=== PATIENT | female | born 1980 | race Caucasian/White ===

== ENCOUNTER 2023-01-24 21:01 | Emergency (ER) | payer OTHER, SELFPAY ==
--- NOTE | ~2023-01-24 | XR_ITS ---
EXAMINATION: XR chest 1V DATE: 01/24/2023 21:39 INDICATION: Altered mental status. TECHNIQUE: A single frontal view of the chest was obtained. COMPARISON: None. FINDINGS: There are airspace opacities in left lower lung zone. No pleural effusion or pneumothorax. The heart size is normal. IMPRESSION: 1. Airspace opacities in left lower lung zone, consistent with atelectasis versus pneumonia. Reviewed, dictated and finalized at location E. IMPRESSION: 1. Airspace opacities in left lower lung zone, consistent with atelectasis vers us pneumonia.
--- NOTE | ~2023-01-24 | CT_ITS ---
EXAMINATION: CT brain wo con DATE: 01/24/2023 21:31 INDICATION: Seizure. TECHNIQUE: Computed tomography (CT) of the head was performed without intravenous contrast. The mA wa s adjusted according to patient size. Iterative reconstruction technique was employed. The dose-lengt h product was 681.00 mGy-cm. COMPARISON: None FINDINGS: There is no intracranial hemorrhage, acute infarction, or abnormal intracranial mass lesion . The ventricles are normal in size. There is mild mucosal thickening in the paranasal sinuses. There are dystrophic calcifications of right ocular globe. The mastoid air cells are normal. IMPRESSION: 1. Normal brain. Reviewed, dictated and finalized at location E. IMPRESSION: 1. Normal brain.
[2023-01-24 21:07] VITALS: BP 116/85; PULSE 70; RESP 16; TEMP 36.1; O2SAT 99
[2023-01-24 21:12] LABS: Glucose Point of Care 77 mg/dl (65-105)
--- NOTE | 2023-01-24 21:28 | ED.GENADULT ---
HPI - General Adult General Chief complaint: Altered Mental Status Stated complaint: ETOH Time Seen by Provider: 01/24/23 21:12 History of Present Illness HPI narrative: This is a 42-year-old female presenting to the ED after being found down in her car apartment complex. At this time she is following commands but unable to answer questions. Per the patient's he believes that she got off work at 5 and has been drinking all day. She has a history of Heavy alcohol use. Patient and family deny any history of seizures. Patient does not have any tongue biting. No loss of continence. Patient cannot provide any meaningful information to the interview. Related Data Allergies Allergy/AdvReac Type Severity Reaction Status Date / Time No Known Allergies Allergy Verified 01/24/23 22:10 Exam Narrative: APPEARANCE: Patient appears confused, she is following commands but is nonverbal Head: atraumatic. EYES: EOMI, pupils are kelsie NOSE: Atraumatic NECK: Trachea midline RESPIRATORY: No increased rate of breathing, clear to auscultation CARDIOVASCULAR: RRR, no peripheral edema ABDOMINAL: Non-distended soft nontender no guarding or rebound MUSCULOSKELETAl: No obvious deformities NEURO: Alert. unable to do a thorough neurologic exam but she is moving for 4 extremities and no obvious cranial nerve deficits. SKIN:: Warm, dry. Normal color PSYCHIATRIC: Lethargic Course Vital Signs Vital signs: Vital Signs Temperature 97.0 F L 01/24/23 21:07 Pulse Rate 70 01/24/23 21:07 Respiratory Rate 16 01/24/23 21:07 Blood Pressure 116/85 01/24/23 21:07 Pulse Oximetry 99 01/24/23 21:07 Oxygen Delivery Room Air 01/24/23 21:07 Temperature 97.0 F L 01/24/23 21:07 Pulse Rate 79 01/24/23 22:30 Respiratory Rate 16 01/24/23 22:30 Blood Pressure 116/85 01/24/23 21:07 Pulse Oximetry 100 01/25/23 05:06 Oxygen Delivery Room Air 01/24/23 21:07 Medical Decision Making MDM Narrative Medical decision making narrative: -Presentation: 42-year-old female presenting ED after being found down at her apartment complex. -DDX includes but is not limited to: ETOH, seizure disorder, substance use disorder -Co-morbidities complicating care: history of heavy alcohol use -Social determinants of health: lives with her -External Chart Review: none -Hx from independent Sources: EMS -Discussion of Management/Consultants: none -Independent interpretation of studies: Alcohol level was 576. CBC and BMP within normal limits. Slight elevations in liver enzymes. Urine was negative. Drug screen is negative. Chest x-ray showed some atelectasis in the left lower lobe. Patient is not having any respiratory distress or hypoxia. CT head showed normal brain. Patient woke up around 230 was able ambulate to the bathroom and only conversation without difficulty. Patient's alcohol level is still very high. She will be monitored in the ER until 6:00 a.m. and then discharged to her 's care. Dx tests considered but not ordered: none -Procedures: None -Interventions: 2 L normal saline -Shared decision making / Disposition: patient was monitored until clinically sober. She will be discharged into her 's custody. They will be given resources for alcohol use disorder. -RX Vital Signs Vital Signs: Vital Signs Temperature 97.0 F L 01/24/23 21:07 Pulse Rate 70 01/24/23 21:07 Respiratory Rate 16 01/24/23 21:07 Blood Pressure 116/85 01/24/23 21:07 Pulse Oximetry 99 01/24/23 21:07 Oxygen Delivery Room Air 01/24/23 21:07 Temperature 97.0 F L 01/24/23 21:07 Pulse Rate 79 01/24/23 22:30 Respiratory Rate 16 01/24/23 22:30 Blood Pressure 116/85 01/24/23 21:07 Pulse Oximetry 100 01/25/23 05:06 Oxygen Delivery Room Air 01/24/23 21:07 Lab Data 01/24/23 21:21 01/24/23 21:21 Labs: Lab Results 01/14
[2023-01-24 21:34] LABS: Basophils Absolute Auto 0.2 K/mm3 (0.0-0.1); Basophils Percent Auto 1.6 % (0.2-1.2); Eosinophils Absolute Auto 0.3 K/mm3 (0-0.3); Hemoglobin 12.4 g/dL (12.0-15.0); Immature Granulocyte Absolute 0.02 K/mm3 (0.00-0.031); Immature Granulocyte Percent A 0.2 % (0-0.5); Lymphocytes Absolute Auto 3.29 K/mm3 (0.9-3.2); Lymphocytes Percent Auto 34.6 % (18.3-44.2); Mean Corpuscular HGB Conc 34.4 g/dl (32-36); Mean Corpuscular Hemoglobin 34.7 pg (26-34); Mean Corpuscular Volume 100.8 fl (80-100); Mean Platelet Volume 9.5 fl (7.4-10.4); Monocytes Absolute Auto 0.8 K/mm3 (0.1-0.6); Monocytes Percent Auto 8.2 % (2.6-8.5); Neutrophils Percent Auto 52.4 % (45.5-73.1); Platelet Count Result 369 k/mm3 (150-375); Red Blood Count 3.57 M/mm3 (4.2-5.4); Red Cell Distribution Width 11.8 % (11.5-14.5); White Blood Count 9.5 K/mm3 (4.5-10.0)
[2023-01-24 21:44] LABS: Lactic Acid Reflex 1.9 mmol/L (0.7-2.0)
[2023-01-24 21:45] LABS: INR 1.2; Partial Thromboplastin Time 30.9 SECONDS (22.3-36.8); Prothrombin Time 15.6 Seconds (11.1-14.7)
[2023-01-24 21:48] LABS: Alanine Aminotransferase 62 U/L (6-35); Albumin Level 4.4 g/dL (3.5-5.1); Alkaline Phosphatase 129 U/L (38-126); Anion Gap 11 mmol/L (8-16); Aspartate Amino Transferase 132 U/L (14-36); Bilirubin,Total 0.5 mg/dL (0.2-1.3); Blood Urea Nitrogen 6 mg/dL (7-17); Calcium 8.6 mg/dL (8.4-10.2); Carbon Dioxide 30 mmol/L (22-30); Chloride 99 mmol/L (98-107); Creatine Kinase 67 U/L (30-135); Estimated CRCL calculation 107 ml/min; Estimated Glomerular Filt Rate > 60; Glucose 90 mg/dL (65-110); Lipase 449 U/L (23-300); Magnesium 1.8 mg/dL (1.6-2.3); Potassium 3.6 mmol/L (3.4-5.0); Sodium 140 mmol/L (137-145)
[2023-01-24] MEDS: SODIUM CHLORIDE 0.9% IV 2,000 ML 999 ML IV CONT (21:56)
[2023-01-24 22:01] LABS: Ethanol 564 mg/dL (<10)
[2023-01-24 22:05] LABS: Appearance Urine Clear (Clear); Bilirubin Urine Negative (Negative); Blood Urine Negative (Negative); Color Urine Yellow (Yellow); Glucose Urine UA Negative (Negative); Ketones Urine Negative (Negative); Leukocyte Esterase Ur Negative LEU/UL (Negative); Nitrate Urine Negative (Negative); Protein Urine Negative (Negative); Specific Grav Ur 1.004 (1.001-1.035); Urobilinogen Urine 0.2 mg/dL (<2.0); pH Urine 7.5 (5.0-9.0)
[2023-01-24 22:08] LABS: Add Urine Microscopic? NO
--- NOTE | 2023-01-24 22:14 | PC.NURSE ---
patient resting but not answering questions appropriately, patient bedside, tearful, reports that patient resistant to getting help for alcohol problem
[2023-01-24 22:22] VITALS: PULSE 81
[2023-01-24 22:22] LABS: Barbiturate Screen Urine Negative (Negative); Benzodiazepines Screen Urine Negative (Negative)
[2023-01-24 22:30] VITALS: PULSE 79; RESP 16
[2023-01-24 22:52] LABS: Amphetamine Screen Urine Negative (Negative); Cocaine Screen Urine Negative (Negative); Methadone Screen Urine Negative (Negative); Opiate Screen Urine Negative (Negative); Phencyclidine Screen Urine Negative (Negative)
[2023-01-24 22:58] LABS: Cannabinoid Screen Urine Negative (Negative)
[2023-01-24 23:18] LABS: Free T4 Free Thyroxine Reflex 4.22 ng/dL (0.78-2.19)
[2023-01-24 23:43] VITALS: O2SAT 97
[2023-01-24 23:45] VITALS: O2SAT 97
[2023-01-25] VITALS (7 sets, daily range): BP systolic 106; BP diastolic 76; PULSE 76; RESP 18; O2SAT 95–100
--- NOTE | 2023-01-25 02:05 | PC.NURSE ---
patient pulled out iv, got up and went bathroom, steady gait, provider notified
--- NOTE | 2023-01-25 05:09 | PC.NURSE ---
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
== END 2023-01-25 05:55 | disposition home or self-care (01) ==
PROVIDERS: Emergency Provider Emergency Medicine
DX: F10.129 Alcohol abuse with intoxication, unspecified (principal); Y90.8 Blood alcohol level of 240 mg/100 ml or more
CPT/HCPCS: 36415; 70450; 71045; 80053; 80307; 81003; 81025; 82550; 82948; 83605; 83690; 83735; 84439; 84443; 85025; 85610; 85730; 96360; 96361; 99284; J7030

== ENCOUNTER 2023-12-23 08:48 | Inpatient (IN) | payer OTHER, SELFPAY ==
[2023-12-23] VITALS (13 sets, daily range): BP systolic 105–131; BP diastolic 68–92; PULSE 74–104; RESP 16–18; TEMP 36.7–37.1; O2SAT 95–100; BMI 20.7
--- NOTE | ~2023-12-23 | MR_ITS ---
EXAMINATION: MR brain/brain stem wo/w con DATE: 12/24/2023 14:04 INDICATION: Seizure. TECHNIQUE: Magnetic resonance imaging (MRI) of the brain and brainstem was performed without and with 12 mL MultiHance intravenous contrast. COMPARISON: Head CT 12/23/2023 FINDINGS: There are a few scattered foci of increased T2-weighted signal intensity in the cerebral wh ite matter. There is no intracranial hemorrhage or acute ischemic infarct. The ventricles are normal in size. There is mild mucosal thickening in the ethmoid sinuses. The orbits are normal. The mastoid air cells are normal. IMPRESSION: 1. Mild nonspecific cerebral white matter disease. The differential diagnosis includes premature [employer] chaparrita small vessel ischemic disease (especially if the patient has cardiovascular risk factors), demyel inating disease such as multiple sclerosis, drug abuse, vasculitis, or reactive astrocytosis (gliosis ) secondary to nonspecific etiology. Reviewed, dictated and finalized at location A. IMPRESSION: 1. Mild nonspecific cerebral white matter disease. The differential diagnosis i ncludes premature chronic small vessel ischemic disease (especially if the adela ent has cardiovascular risk factors), demyelinating disease such as multiple sc lerosis, drug abuse, vasculitis, or reactive astrocytosis (gliosis) secondary t o nonspecific etiology.
--- NOTE | ~2023-12-23 | CT_ITS ---
EXAMINATION: CT abdomen pelvis w con DATE: 12/23/2023 10:51 INDICATION: Upper abdominal pain. TECHNIQUE: Computed tomography (CT) of the abdomen and pelvis was performed with 100 mL Omnipaque 350 intravenous contrast. Automated exposure control and iterative reconstruction technique were employe d. The dose-length product was 334.19 mGy-cm. COMPARISON: None. FINDINGS: The visualized portions of the lung bases demonstrate minimal atelectasis. No pleural effus ion. The heart size is normal. No pericardial effusion. There is diffuse hepatic steatosis. The gallb ladder, spleen, pancreas, adrenal glands, and kidneys are normal. There is a 3.3 cm cyst in left ovar y. There are no dilated loops of bowel. The appendix is normal. There are no pathologically enlarged lymph nodes. There is no free intraperitoneal fluid. There is mild lumbar spondylosis. IMPRESSION: 1. Diffuse hepatic steatosis. 2. 3.3 cm left ovarian cyst, likely a follicular cyst. Reviewed, dictated and finalized at location A.
--- NOTE | ~2023-12-23 | CT_ITS ---
EXAMINATION: CT brain wo con DATE: 12/23/2023 10:51 INDICATION: Seizure. Altered mental status. TECHNIQUE: Computed tomography (CT) of the head was performed without intravenous contrast. The mA wa s adjusted according to patient size. Iterative reconstruction technique was employed. The dose-lengt h product was 681.00 mGy-cm. COMPARISON: None FINDINGS: There is no intracranial hemorrhage, acute infarction, or abnormal intracranial mass lesion . The ventricles are normal in size. The orbits are normal. The paranasal sinuses are clear. The mast oid air cells are normal. IMPRESSION: 1. Normal brain. Reviewed, dictated and finalized at location A. IMPRESSION: 1. Normal brain.
--- NOTE | ~2023-12-23 | XR_ITS ---
EXAMINATION: XR chest 2V DATE: 12/23/2023 10:36 INDICATION: Altered mental status. TECHNIQUE: Frontal and lateral views of the chest were obtained. COMPARISON: Chest single view 01/24/2023 FINDINGS: There is no pneumonia, pleural effusion, or pneumothorax. The heart size is normal. IMPRESSION: 1. No acute cardiopulmonary disease. Reviewed, dictated and finalized at location A.
--- NOTE | 2023-12-23 08:51 | ECG_ITS ---
Measurements Intervals [place] Rate: 80 P: 19 AL: 119 QRS: 57 QRSD: 98 T: 32 QT: 407 AVG RR: 742 QTc: 443 QTCB: 472 QTCF: 449 Interpretive Statements SINUS RHYTHM WITH SHORT AL INTERVAL NORMAL ECG SEE SCANNED COPY FOR SIGNATURE MTDD
--- NOTE | 2023-12-23 09:04 | ED.AMS ---
HPI - Altered Mental Status General Chief Complaint: Altered Mental Status <Pillo Brooks APRN - Last Filed: 12/23/23 13:30> Stated Complaint: AMS <Pillo Brooks APRN - Last Filed: 12/23/23 13:30> Time Seen by Provider: 12/23/23 08:58 <Pillo Brooks APRN - Last Filed: 12/23/23 13:30> Source: patient <Pillo Brooks APRN - Last Filed: 12/23/23 13:30> Mode of arrival: ambulatory <Pillo Brooks APRN - Last Filed: 12/23/23 13:30> Limitations: no limitations <Pillo Brooks APRN - Last Filed: 12/23/23 13:30> History of Present Illness HPI narrative: Cristina is a 43-year-old female patient presenting to the emergency room today via and words so EMS for altered level of consciousness. Patient is alert oriented x1. Family reports that patient does drink a lot of alcohol and takes gummies. Patient reports that she has not had any alcohol since last week. Patient was found down slow response foaming at the mouth at home prior to EMS arrival-suspected seizure. When asked if the patient had a seizure she denies and states she is here for abdomen pain. Feels as though it is weird that she left without her shoes and her purse this morning. She denies any urinary symptoms. Last bowel movement was yesterday. She denies any nausea, vomiting, diarrhea. She reports that there was a dull pain in the abdomen rating it 8/10 currently. <Pillo Brooks APRN - Last Filed: 12/23/23 13:30> Related Data Home Medications: Home Medications Medication Instructions Recorded Confirmed buspirone 15 mg tablet 15 mg PO BID 12/23/23 escitalopram oxalate 20 mg tablet 20 mg PO DAILY 12/23/23 levothyroxine 50 mcg tablet 50 mcg PO 0600 12/23/23 <Pillo Brooks APRN - Last Filed: 12/23/23 13:30> Allergies/Adverse Reactions: Allergies Allergy/AdvReac Type Severity Reaction Status Date / Time No Known Allergies Allergy Verified 01/24/23 22:10 <Pillo Brooks APRN - Last Filed: 12/23/23 13:30> Review of Systems Review of Systems: Pertinent positives per HPI. Patient denies any fever, chills, rash, headache, visual changes, dizziness, cough, runny nose, sore throat, shortness of breath, chest pain, palpitations, nausea, vomiting, diarrhea, constipation, or any urinary issues. <Pillo Brooks APRN - Last Filed: 12/23/23 13:30> [facility] Past Medical History Medical History: Medical History (Updated 12/23/23 @ 17:16 by Kath Castillo PA-C) Depression Eczema Hypothyroidism <Pillo Brooks APRN - Last Filed: 12/23/23 13:30> Family History Family History: Family History Other Unknown family medical history <Pillo Brooks APRN - Last Filed: 12/23/23 13:30> Social History Social History: Social History (Updated 12/23/23 @ 17:14 by Kath Castillo PA-C) Social History: Surrogate medical decision maker: Clarence Schmidt, spouse. Code status: Full code. Smoking packs per day: 0.5 Smoking cigarettes per day: 10.0 Years smoked: 10 Smoking pack-years: 5.00 Smoking status: Former smoker Alcohol intake: current Drinks per week: 5 Substance use: never Do You Feel Safe in your Home?: Yes Lack of Transportation: No Lack of Food: Never True Current Housing: I Have Housing Concerned About Future Housing: No Difficulty Paying Gas/Electric Bills: No Difficulty Paying for Meds: No Currently Unemployed: No Education: Master's Degree or Higher Difficulty w/ Childcare or Family Care: No Spiritual care concerns: Yes <Pillo Brooks APRN - Last Filed: 12/23/23 13:30> Comments At the time of my signature, I reviewed and agree with the nursing past medical, surgical, social, and family history. There is no relevant family history pertinent to the patient complaint. <Pillo Brooks APRN - Last Filed:
[2023-12-23 09:46] LABS: Basophils Absolute Auto 0.1 K/mm3 (0.0-0.1); Basophils Percent Auto 0.9 % (0.2-1.2); Eosinophils Percent Auto 0.4 % (0-4.4); Hematocrit 36.7 % (37.0-47.0); Hemoglobin 12.7 g/dL (12.0-15.0); Immature Granulocyte Absolute 0.04 K/mm3 (0.00-0.031); Immature Granulocyte Percent A 0.4 % (0-0.5); Lymphocytes Absolute Auto 0.62 K/mm3 (0.9-3.2); Lymphocytes Percent Auto 6.2 % (18.3-44.2); Mean Corpuscular HGB Conc 34.6 g/dl (32-36); Mean Corpuscular Hemoglobin 34.3 pg (26-34); Mean Corpuscular Volume 99.2 fl (80-100); Mean Platelet Volume 10.9 fl (7.4-10.4); Monocytes Percent Auto 9.7 % (2.6-8.5); Neutrophils Absolute Auto 8.3 K/mm3 (1.3-6.7); Neutrophils Percent Auto 82.4 % (45.5-73.1); Platelet Count Result 188 k/mm3 (150-375); Red Cell Distribution Width 12.1 % (11.5-14.5)
[2023-12-23 09:56] LABS: Alanine Aminotransferase 93 U/L (6-35); Albumin Level 4.9 g/dL (3.5-5.1); Alkaline Phosphatase 218 U/L (38-126); Anion Gap 21 mmol/L (4-12); Aspartate Amino Transferase 287 U/L (14-36); Bilirubin,Total 2.4 mg/dL (0.2-1.3); Blood Urea Nitrogen 10 mg/dL (7-17); Calcium 9.5 mg/dL (8.4-10.2); Carbon Dioxide 14 mmol/L (22-30); Chloride 96 mmol/L (98-107); Creatine Kinase 57 U/L (30-135); Estimated CRCL calculation 69 ml/min; Estimated Glomerular Filt Rate > 60; Glucose 163 mg/dL (65-110); Lipase 371 U/L (23-300); Potassium 4.1 mmol/L (3.4-5.0); Sodium 131 mmol/L (137-145)
[2023-12-23 09:57] LABS: Ammonia 18 umol/L (9-30); Ethanol < 10 mg/dL (<10)
[2023-12-23] MEDS: SODIUM CHLORIDE 0.9% IV 1,000 ML 999 ML IV CONT ×2 (10:00→11:12)
[2023-12-23 10:03] LABS: INR 1.2; Prothrombin Time 15.6 Seconds (11.1-14.7)
[2023-12-23 10:04] LABS: Partial Thromboplastin Time 27.5 Seconds (22.3-36.8)
[2023-12-23 10:07] LABS: Appearance Urine Clear (Clear); Bacteria Urine None Seen /hpf; Bilirubin Urine Negative (Negative); Blood Urine 3+ (Negative); Color Urine Yellow (Yellow); Glucose Urine UA Negative (Negative); Ketones Urine 4+ mg/dL (Negative); Leukocyte Esterase Ur Negative LEU/UL (Negative); Nitrate Urine Negative (Negative); Non Pathogenic Casts 0-2; Protein Urine 1+ mg/dL (Negative); Specific Grav Ur 1.021 (1.001-1.035); Squamous Epithelial Cell Urine Occasional /hpf (Few); WBC Urine 0-5 /hpf (0-3); pH Urine 5.5 (5.0-9.0)
[2023-12-23 10:18] LABS: Add Urine Microscopic? YES
[2023-12-23 11:18] LABS: Amphetamine Screen Urine Negative (Negative); Barbiturate Screen Urine Negative (Negative); Benzodiazepines Screen Urine Negative (Negative); Cannabinoid Screen Urine Positive (Negative); Cocaine Screen Urine Negative (Negative); Methadone Screen Urine Negative (Negative); Opiate Screen Urine Negative (Negative); Phencyclidine Screen Urine Negative (Negative)
--- NOTE | 2023-12-23 13:53 | PM.IMHP ---
H&P: HPI History of Present Illness Date/Time: 12/23/23 15:15 Chief Complaint: Found unresponsive. Narrative: This is a very pleasant 43-year-old female with hypothyroidism, fatty liver, depression, and history of alcohol abuse who presented to the emergency department via EMS from home for evaluation after she was found unresponsive at her residence. She is able to provide some history however her provides additional information, with the patient's permission, as she cannot recall what really happened this morning. 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 She feels exhausted most days admits that she does not get good sleep. Other than that she was in her usual state of health when she went to bed last night. This morning her heard her scream out and he saw her tremoring with ?foam coming out of the mouth.? He was unable to get her to respond for a couple of minutes and when she came to she was confused. There was urine incontinence but no tongue bite. On EMS arrival she was still confused and presumed to be postictal. She has no history of seizures. Again, she does not sleep well. She has a history of alcohol abuse and has been off of vodka for 2 months however she does drink beer or wine most days of the week in excess. She did not have any alcohol at all over the weekend and did not really have much to eat either due to being busy and stressed. No recent change in medications. At the time my evaluation she complains of a mild, generalized headache. She has some fine tremors of her hands. She denies feelings of anxiety, hallucinations, nausea, vomiting, chest pain, shortness of breath, and sweats. In the ED: She was afebrile on arrival with stable vital signs. Labs were significant for a WBC count of 10.0, hemoglobin 12.7, platelets 188, INR 1.2, PT 15.6, sodium 131, potassium 4.1, chloride 96, carbon dioxide 14, anion gap 21, creatinine 0.80, total bilirubin 2.4, AST 287, ALT 93, alkaline phosphatase 218, ammonia 18, lipase 371. Urine was positive for 1+ protein, 4+ ketones, 3+ blood, and 11 to 20 RBC. Urine drug screen was positive for cannabinoids. Ethyl alcohol level was less than 10. Brain CT and chest x-ray were normal. CT of the abdomen pelvis showed diffuse hepatic steatosis and a 3.3 cm left ovarian cyst. Review of Systems Review of Systems: 12 systems were reviewed and are negative except for as per HPI. [facility] Past Medical History Medical History (Updated 12/23/23 @ 21:43 by Kath Castillo PA-C) Alcohol abuse Depression Eczema Hepatic steatosis Hypothyroidism Surgical History Surgical History (Updated 12/23/23 @ 21:38 by Kath Castillo PA-C) No history of previous surgery Family History Family History Other Unknown family medical history Social History Social History (Updated 12/23/23 @ 21:38 by Kath Castillo PA-C) Social History: Surrogate medical decision maker: Clarence Schmidt, spouse. Code status: Full code. Smoking packs per day: 0.5 Smoking cigarettes per day: 10.0 Years smoked: 10 Smoking pack-years: 5.00 Smoking status: Former smoker Alcohol intake: current Drinks per week: 5 Substance use: never Do You Feel Safe in your Home?: Yes Lack of Transportation: No Lack of Food: Never True Current Housing: I Have Housing Concerned About Future Housing: No Difficulty Paying Gas/Electric Bills: No Difficulty Paying for Meds: No Currently Unemployed: No Education: Master's Degree or Higher Difficulty w/ Childcare or Family Care: No Additional living arrangements comments: Lives with spouse in [place]. 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 Spiritual care concerns: Yes Meds Home Medications and Allergies Home Medications Medication Instructions Recorded Confirmed Type buspiron
[2023-12-23] MEDS: IBUPROFEN 600 MG TABLET PO (14:37)
--- NOTE | 2023-12-23 15:08 | ADMGEN ---
This patient, Cristina Fowler, was admitted to IMU Room 231-01. Patient/family oriented to hospital policies and general routines including ID bracelet, bed and alarms, visiting hours, pain management, procedures, bathroom and other care routines, personal items, smoking policy, room service/diet, and visiting hours. Information on how to activate the Rapid Response Team has been discussed. Patient/Family are encouraged to report perceived risks to care and to ask questions if they do not understand what they are told or what they should do.
[2023-12-23] MEDS: THIAMINE HCL 200 MG/2 ML VIAL 100 MG IV PUSH (17:39)
[2023-12-23] MEDS: DEXTROSE 5%/0.9% SOD CHL 1,000 ML 100 ML IV CONT (17:42)
[2023-12-23] MEDS: FOLIC ACID 1 MG/0.2 ML INJ IV PUSH (17:42)
[2023-12-23 17:53] LABS: Anion Gap 16 mmol/L (4-12); Blood Urea Nitrogen 6 mg/dL (7-17); Calcium 8.2 mg/dL (8.4-10.2); Carbon Dioxide 15 mmol/L (22-30); Chloride 99 mmol/L (98-107); Estimated CRCL calculation 99 ml/min; Estimated Glomerular Filt Rate > 60; Glucose 92 mg/dL (65-110); Magnesium 1.7 mg/dL (1.6-2.3); Potassium 3.8 mmol/L (3.4-5.0); Sodium 130 mmol/L (137-145)
[2023-12-23 17:56] LABS: Lactic Acid Reflex 1.2 mmol/L (0.7-2.0)
[2023-12-23 19:25] LABS: Hepatitis B Surface Antigen Negative (Negative)
[2023-12-23 19:31] LABS: HAV RESULT Negative (Negative); Hepatitis B Core IgM Result Negative (Negative)
[2023-12-23 19:41] LABS: Beta-Hydroxybutyrate/Acetoacetate 6.08 mmol/L (0.02-0.27)
[2023-12-23 19:43] LABS: Hepatitis C Virus Antibody Negative (Negative)
[2023-12-23] MEDS: IBUPROFEN 400 MG TABLET PO (21:00)
[2023-12-23] MEDS: chlordiazePOXIDE (*CRX) 10 MG CAPSULE PO (21:04)
[2023-12-23 23:46] LABS: Hemoglobin A1C 4.5 % (<5.7)
[2023-12-24] VITALS (17 sets, daily range): BP systolic 102–125; BP diastolic 68–90; PULSE 61–114; RESP 16–18; TEMP 36–37.3; O2SAT 98–100; BMI 21.4
[2023-12-24] MEDS: DEXTROSE 5%/0.9% SOD CHL 1,000 ML 100 ML IV CONT (03:42)
[2023-12-24 04:55] LABS: Alanine Aminotransferase 62 U/L (6-35); Albumin Level 3.8 g/dL (3.5-5.1); Alkaline Phosphatase 150 U/L (38-126); Anion Gap 11 mmol/L (4-12); Aspartate Amino Transferase 163 U/L (14-36); Bilirubin,Total 2.2 mg/dL (0.2-1.3); Blood Urea Nitrogen 4 mg/dL (7-17); Calcium 8.5 mg/dL (8.4-10.2); Carbon Dioxide 21 mmol/L (22-30); Chloride 102 mmol/L (98-107); Estimated CRCL calculation 116 ml/min; Estimated Glomerular Filt Rate > 60; Glucose 125 mg/dL (65-110); Lipase 626 U/L (23-300); Potassium 3.2 mmol/L (3.4-5.0); Sodium 134 mmol/L (137-145)
--- NOTE | 2023-12-24 08:49 | PM.IMPN ---
Progress Note: A&P Assessment and Plan (1) Seizure: Code(s): R56.9 - Unspecified convulsions Status: Acute (2) Alcohol withdrawal: Code(s): F10.939 - Alcohol use, unspecified with withdrawal, unspecified Status: Acute (3) Metabolic acidosis: Code(s): E87.20 - Acidosis, unspecified Status: Acute (4) Transaminitis: Code(s): R74.01 - Elevation of levels of liver transaminase levels Status: Acute (5) Hypothyroidism: Code(s): E03.9 - Hypothyroidism, unspecified Status: Acute (6) Hepatic steatosis: Code(s): K76.0 - Fatty (change of) liver, not elsewhere classified Status: Acute (7) Acute alcoholic hepatitis: Code(s): K70.10 - Alcoholic hepatitis without ascites Status: Acute Plan The patient presented to the emergency department for evaluation after she was found unresponsive, foaming at the mouth, and incontinent of urine as detailed in HPI. Labs, imaging, EKG, and all reports were personally reviewed. It sounds like she had a seizure which may very well be related to alcohol withdrawal. She has not had anything to drink since late last week. Her alcohol level today was undetectable. Metabolic acidosis is likely related to the seizure in addition to ketoacidosis from poor oral intake. Repeat BMP and check lactic acid level and beta hydroxybutyrate this evening. She has been started on IV fluids with dextrose for the ketoacidosis. Initiate CIWA protocol and seizure precautions. Brain MRI and EEG ordered for further evaluation. Transaminitis is likely related to alcohol abuse and there are findings of hepatic steatosis on imaging today of which she has been told of previously. Lipase is slightly elevated without signs of acute pancreatitis on CT and will be trended. Is important that she stops drinking and that was discussed. She is motivated and is participating in outpatient therapy and plans on starting AA. Vital signs were reviewed and they are stable. Her home medications will be reviewed and resumed as appropriate. Findings and treatment plan were discussed with the patient. Questions were solicited and answered to satisfaction. The patient's medical management will be taken over by the hospitalist team in a.m. /9: seizure patient denies history of seizure pending Brain MRI and EEG no sz over night unclear etiologies of seizures, alcohol level <10, alcohol drug screen positive for marijuana continue neuro check fall precaution Consult neurologist for evaluation continue rest management alcoholic hepatitis elevated liver enzymes, bilirubin Hypertension is pending negative of care infection CT shows 1. Diffuse hepatic steatosis. 2. 3.3 cm left ovarian cyst, likely a follicular cyst. liver enzymes are trending down Follow-up CMP tomorrow order abd us acute alcoholic pancreatitis Order that pain management Continue fluid resuscitation: D5 LR 100 mL/hour history of alcohol abuse no significant sign or symptom of alcohol withdrawal Continue thiamine, folic acid po evaluation and treatment per [facility] protocol Subjective Date/time seen: 12/24/23 08:49 Interval history: I saw and examined. patient denied visual hallucination, headache, focal weakness, chest pain, shortness of breath. Patient afebrile, blood pressure stable Exam Narrative: GENERAL: Pleasant, in no acute distress. Well-nourished. - EYES: EOMI. Anicteric. - HENT: Moist mucous membranes. - LUNGS: Clear to auscultation bilaterally, no wheezing, rhonchi, or rales. - CARDIOVASCULAR: Regular rate and rhythm. No murmur. No JVD. - ABDOMEN: Soft, non-tender and non-distended. No palpable masses. - EXTREMITIES: No edema. Peripheral pulses 2+. Non-tender. - NEUROLOGIC: No focal neurological deficits. CN II-XII grossly intact. - PSYCHIATRIC: Awake, Alert and oriented x 3. Appropriate mood and affect. - SKIN: No rashes or lesions. Warm. - LYM
[2023-12-24] MEDS: THIAMINE HCL 100 MG TABLET PO (09:12)
[2023-12-24] MEDS: FOLIC ACID 1 MG TABLET PO (09:12)
[2023-12-24 09:36] LABS: Hematocrit 33.8 % (37.0-47.0); Hemoglobin 11.5 g/dL (12.0-15.0); Mean Corpuscular Hemoglobin 34.1 pg (26-34); Mean Corpuscular Volume 100.3 fl (80-100); Mean Platelet Volume 11.6 fl (7.4-10.4); Platelet Count Result 150 k/mm3 (150-375); Red Blood Count 3.37 M/mm3 (4.2-5.4); Red Cell Distribution Width 12.4 % (11.5-14.5); White Blood Count 9.3 K/mm3 (4.5-10.0)
[2023-12-24] MEDS: DEXTROSE 5%/LACTATED RINGERS 1,000 ML 100 ML IV CONT (09:59)
--- NOTE | 2023-12-24 11:57 | WPDNEURCNPN ---
Assessment and Plan Assessment and plan (1) Alcohol abuse: Code(s): F10.10 - Alcohol abuse, uncomplicated Status: Acute (2) Seizure: Code(s): R56.9 - Unspecified convulsions Status: Acute Plan Considering the history and discussion with the she will benefit from the ongoing therapy with psychiatric and beneficial if he get a psychiatric consultation during this hospitalization because of the poor compliance as an outpatient her had a thorough discussion with me and he would like to pursue further because she is reaching the point he has no control on her cell. As far as this episode is concerned it could be seizure related to chronic alcoholism will obtain the EEG further recommendation. While here should follow the seizure precautions Consult date: 12/24/23 HPI: Cristina Fowler is a 43 year old femaleAdmitted to the hospital through the emergency room after being found down in her car though by the time she came to the emergency room she was following the commands still was unable to answer the questions her reported that she probably got off work at 5 and had been drinking whole day patient does have ongoing history of heavy alcohol consumption but the gave no history of seizures in the past in the emergency room it was documented that she was not incontinent but she was unable to provide any meaningful information . Totally she is not allergic to any medication, her vital signs were normal with blood pressure 116/85 temperature 97.0? CBC was normal CMP was normal drug screen was negative except the alcohol level of [address] scan of head was normal no bleed, abdomen and pelvic CT scan documented diffuse hepatic steatosis in addition 3.3cm left ovarian cyst. As per the discussion with her patient does have ongoing history of chronic recurrent depression in addition to chronic recurrent alcohol consumption and on a day-to-day basis she is unable to handle any stress most of the time she has exhausted does not get proper sleep and hoyos drinks a week currently on the day of admission her heard a scream she was tremoring and foaming and unable to carry on the conversation definitely confused she was incontinent and was still confused when the EMS arrived he does have ongoing history of chronic insomnia , she drinks heavy beer wine vodka, at present she carries a full code status history of years smoked 10 smoking pack years 5 but former smoker. Review of Systems Review of Systems: All systems reviewed & are unremarkable except as noted in HPI and below [facility] Past Medical History Medical History (Updated 12/24/23 @ 09:10 by Medina Michael MD) Alcohol abuse Depression Eczema Hepatic steatosis Hypothyroidism Surgical History Surgical History (Updated 12/23/23 @ 21:38 by Kath Castillo PA-C) No history of previous surgery Family History Family History Other Unknown family medical history Social History Social History (Updated 12/23/23 @ 21:38 by Kath Castillo PA-C) Social History: Surrogate medical decision maker: Clarence Schmidt, spouse. Code status: Full code. Smoking packs per day: 0.5 Smoking cigarettes per day: 10.0 Years smoked: 10 Smoking pack-years: 5.00 Smoking status: Former smoker Alcohol intake: current Drinks per week: 5 Substance use: never Do You Feel Safe in your Home?: Yes Lack of Transportation: No Lack of Food: Never True Current Housing: I Have Housing Concerned About Future Housing: No Difficulty Paying Gas/Electric Bills: No Difficulty Paying for Meds: No Currently Unemployed: No Education: Master's Degree or Higher Difficulty w/ Childcare or Family Care: No Additional living arrangements comments: Lives with spouse in [place]. 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 Spiritual care concerns: Yes
--- NOTE | 2023-12-24 14:18 | WPDNEUROLOGY ---
Neurology EEG Report General Information Date of Study: 12/24/23 TEST eeg DIAGNOSIS Suspected seizures CONDITION OF RECORDING Awake and drowsy with continuous eye movements noted throughout the tracing.y EEG NUMBER [id number] CLINICAL HISTORY patient reports she was at home sleeping when she thinks she had a seizure was told she was unresponsive and foaming at the mouth. There is history of seizures. EEG DESCRIPTION Whole record consist of low-voltage 15 to 21 hertz per 2nd beta activity with a poor anterior-posterior gradient and admixed with multiple movement artifacts. Hyperventilation not done. Photic stimulation not done. Non paroxysmal. Nonfocal. Nonlateralizing. IMPRESSION No significant abnormalities noted.
[2023-12-24] MEDS: chlordiazePOXIDE (*CRX) 25 MG CAPSULE 50 MG PO (20:45)
--- NOTE | 2023-12-24 21:57 | PC.NURSE ---
At 1915 pt. came out of room and stated that she did not want IV fluids going any more. the rn tried to explain to the pt. the importance of keeping the IV fluids continuing. Dr. Fontanez was called and stated that the IV fluids can be shut off due to pt. request and libruim of 50mg po was ordered.
--- NOTE | 2023-12-24 22:04 | PC.NURSE ---
At 2100 rn was called into the room due to the pt. very upset that the tele monitor is on her. rn explained to the pt. why the pt. is on telemetry. At 2136 [place] police department called the [facility] station stating that the pt. called the [place] police department stating she was being held prisoner. Dr. Fontanez was notified including the admission discharge rn and the housekeeping cleaner. The pt. signed out AMA at 2200 and was notified.
--- NOTE | 2024-01-10 06:18 | PM.EVENT ---
Event Note Event Note Event Note: Patient left AMA Admitting diagnosis: (1) Seizure: ?Code(s): R56.9 - Unspecified convulsions ?Status:?Acute (2) Alcohol withdrawal: ?Code(s): F10.939 - Alcohol use, unspecified with withdrawal, unspecified ?Status:?Acute (3) Metabolic acidosis: ?Code(s): E87.20 - Acidosis, unspecified ?Status:?Acute (4) Transaminitis: ?Code(s): R74.01 - Elevation of levels of liver transaminase levels ?Status:?Acute (5) Hypothyroidism: ?Code(s): E03.9 - Hypothyroidism, unspecified ?Status:?Acute (6) Hepatic steatosis: ?Code(s): K76.0 - Fatty (change of) liver, not elsewhere classified ?Status:?Acute I was called to be notified that patient decided to leave AMA. Earlier in the night patient was belligerent and refusing treatment. Patient with decision making capacity, not a threat to self or others
== END 2023-12-24 22:00 | disposition left against medical advice (07) | DRG 894 ==
LOC: ANHED 13:30 → ANHIMU 14:33
PROVIDERS: Hospitalist; Physician Assistant; Admitting Provider Student in an Organized Health Care Education/Training Program; Emergency Provider Nurse Practitioner Family; PCP Internal Medicine; Visit Provider Internal Medicine
DX: F10.139 Alcohol abuse with withdrawal, unspecified (principal); K85.20 Alcohol induced acute pancreatitis without necrosis or infection; G40.89 Other seizures; E87.21 Acute metabolic acidosis; E87.29 Other acidosis; E03.9 Hypothyroidism, unspecified; K76.0 Fatty (change of) liver, not elsewhere classified; K70.10 Alcoholic hepatitis without ascites; Y90.0 Blood alcohol level of less than 20 mg/100 ml
CPT/HCPCS: 36415; 70450; 70553; 71046; 74177; 80048; 80053; 80074; 80307; 81001; 82010; 82140; 82248; 82550; 83036; 83605; 83690; 83735; 84443; 85025; 85027; 85610; 85730; 93005; 95816; 96360; 96361; 99285; A9270; A9577; J3411; J7030; J7042; J7121; Q9967

== ENCOUNTER 2024-01-19 23:16 | Observation (INO) | payer OTHER, SELFPAY ==
--- NOTE | ~2024-01-19 | XR_ITS ---
Portable chest x-ray Comparison: 12/23/2023 Clinical History: Altered mental status Findings: Lungs are clear, without focal consolidation or pleural effusion. Cardiomediastinal silho uette is stable. Bones and soft tissues are unremarkable. Impression: Normal chest. Reviewed, dictated and finalized at location . Impression: Normal chest.
--- NOTE | ~2024-01-19 | CT_ITS ---
Non-contrast Head CT History: Head injury COMPARISON: 12/23/2023 Technique: Axial non-contrast imaging of the brain was performed. Dose reduction technique was used on this scan by utilizing automated exposure control and iterative reconstruction technique. The dose -length product (DLP) was 681.00 mGy-cm. Findings: There is no evidence of intracranial hemorrhage, mass lesion, or acute infarct. Brain par enchyma appears normal. The ventricles and subarachnoid spaces are normal in size. The calvarium ap pears normal. The visualized paranasal sinuses and mastoid air cells are clear. Impression: No significant abnormality seen. Reviewed, dictated and finalized at location . Impression: No significant abnormality seen.
--- NOTE | ~2024-01-19 | CT_ITS ---
Noncontrast CT scan of the cervical spine Technique: Multiple contiguous axial [address] images of the cervical spine were obtained and rec onstructed in 2D sagittal and coronal planes on the acquisition scanner. Dose reduction technique was used on this scan by utilizing automated exposure control, adjustment of the mA and/or kV according to patient size. The dose-length product (DLP) was 253.76 mGy-cm. Clinical History: Pain Findings: No fractures or dislocations. Scattered facet joint degenerative changes are present, mild to moderate in degree.. The intervertebral disc spaces are preserved. No prevertebral soft tissue s welling. Impression: No fracture or subluxation of the cervical spine. Reviewed, dictated and finalized at location M. Impression: No fracture or subluxation of the cervical spine.
[2024-01-19 23:21] VITALS: BP 103/76; PULSE 63; RESP 14; TEMP 36.3; O2SAT 97
--- NOTE | 2024-01-19 23:58 | ED.FALL ---
HPI - Fall General Chief Complaint: Fall Stated Complaint: fall, ams Time Seen by Provider: 01/19/24 23:34 Source: patient Mode of arrival: EMS Limitations: altered mental status History of Present Illness HPI Narrative: This is a 43-year-old female with PMH of alcohol abuse, alcoholic hepatitis, alcohol withdrawal seizures who presents to the ED via EMS with chief complaint of head injury and altered mental status. The downstairs neighbor called the EMS after they heard her fall. The was with her but is not currently at bedside. EMS reports that she was found with a bottle of liquor Patient is severely altered and unable to provide any history. Related Data Home Medications Medication Instructions Recorded Confirmed buspirone 15 mg tablet 5 mg PO BID 12/23/23 12/24/23 escitalopram oxalate 20 mg tablet 10 mg PO DAILY 12/23/23 12/24/23 levothyroxine 50 mcg tablet 50 mcg PO 0600 12/23/23 12/24/23 Allergies Allergy/AdvReac Type Severity Reaction Status Date / Time No Known Allergies Allergy Verified 01/24/23 22:10 Review of Systems Review of Systems: ROS unobtainable: Yes unobtainable due to mental status [facility] Past Medical History Medical History (Updated 01/20/24 @ 03:41 by Cody Lake PA-C) Alcohol abuse Depression Eczema Hepatic steatosis Hypothyroidism Surgical History Surgical History (Updated 12/23/23 @ 21:38 by Kath Castillo PA-C) No history of previous surgery Family History Family History Other Unknown family medical history Social History Social History (Updated 12/23/23 @ 21:38 by Kath Castillo PA-C) Social History: Surrogate medical decision maker: Clarence Tracikarishma, spouse. Code status: Full code. Smoking packs per day: 0.5 Smoking cigarettes per day: 10.0 Years smoked: 10 Smoking pack-years: 5.00 Smoking status: Former smoker Alcohol intake: current Drinks per week: 5 Substance use: never Do You Feel Safe in your Home?: Yes Lack of Transportation: No Lack of Food: Never True Current Housing: I Have Housing Concerned About Future Housing: No Difficulty Paying Gas/Electric Bills: No Difficulty Paying for Meds: No Currently Unemployed: No Education: Master's Degree or Higher Difficulty w/ Childcare or Family Care: No Additional living arrangements comments: Lives with spouse in [place]. 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 Spiritual care concerns: No Exam Narrative: GENERAL: Obtunded HEAD: Normocephalic, atraumatic. EYES: PERRLA and EOMI. ENT: Small right-sided periorbital hematoma Nares clear, no rhinorrhea or epistaxis. Mucous membranes moist. Oropharynx without tonsillar hypertrophy exudate or other lesions. NECK: Supple. No adenopathy or masses. CHEST: No respiratory distress. Clear to auscultation. No wheezes rales or rhonchi HEART: Regular rate and rhythm. No murmur heard. Normal peripheral pulses. ABDOMEN: Soft, nontender, nondistended, normal active bowel sounds. MSK: Normal range of motion. No edema. SKIN: Warm, dry, no rash. NEURO: GCS 7. Responding only to painful stimuli. PSYCH: obtunded Course Reevaluation(s) Reevaluation #1: Patient now has spontaneous eye movements; GCS has improved to 9. is now bedside. He states that she deals with alcoholism. States she will hide bottles and often try to sneak in drinks. She was admitted to the hospital somewhat recently for alcohol withdrawal seizures. He does state that she drank vodka tonight. He heard her fall but did not witness the fall. He reports that she probably fell into the shower door or hit her head on the floor causing the right eye swelling. reports that she was actually doing her Mag citrate for bowel prep for colonoscopy and drinking. So she has not been eating which probably made things worse. He does not think that she wou
[2024-01-20] VITALS (11 sets, daily range): BP systolic 95–110; BP diastolic 55–78; PULSE 70–81; RESP 14–18; TEMP 36.3–37.1; O2SAT 96–100; BMI 20.7
--- NOTE | 2024-01-20 00:02 | ECG_ITS ---
SEE SCANNED COPY FOR CONFIRMED REPORT MTDD
[2024-01-20 00:24] LABS: Basophils Absolute Auto 0.1 K/mm3 (0.0-0.1); Basophils Percent Auto 1.1 % (0.2-1.2); Eosinophils Absolute Auto 0.3 K/mm3 (0-0.3); Eosinophils Percent Auto 3.7 % (0-4.4); Hematocrit 35.2 % (37.0-47.0); Immature Granulocyte Absolute 0.03 K/mm3 (0.00-0.031); Immature Granulocyte Percent A 0.4 % (0-0.5); Lymphocytes Absolute Auto 2.72 K/mm3 (0.9-3.2); Lymphocytes Percent Auto 37.6 % (18.3-44.2); Mean Corpuscular HGB Conc 34.1 g/dl (32-36); Mean Corpuscular Hemoglobin 34.8 pg (26-34); Mean Platelet Volume 9.8 fl (7.4-10.4); Monocytes Absolute Auto 1.1 K/mm3 (0.1-0.6); Monocytes Percent Auto 15.1 % (2.6-8.5); Neutrophils Percent Auto 42.1 % (45.5-73.1); Platelet Count Result 202 k/mm3 (150-375); Red Blood Count 3.45 M/mm3 (4.2-5.4); Red Cell Distribution Width 12.7 % (11.5-14.5); White Blood Count 7.2 K/mm3 (4.5-10.0)
[2024-01-20 00:35] LABS: INR 1.3; Prothrombin Time 16.5 Seconds (11.1-14.7)
[2024-01-20 00:36] LABS: Partial Thromboplastin Time 30.9 Seconds (22.3-36.8)
[2024-01-20 00:37] LABS: Lactic Acid Reflex 2.5 mmol/L (0.7-2.0)
[2024-01-20 00:46] LABS: Alveolar/Arterial O2 Gradient 13.3 mmHg; Base Excess ABG -3.3 mEq/l (+/-2.0); Device ROOM AIR; Fractional Inspired Oxygen 21 %; HCO3 ABG 21.8 mEq/l (22.0-26.0); Modified Allen's Test Pass; Oxygen Content ABG 16.9 %vol (16.0-22.0); Oxygen Saturation ABG 96.6 % (95.0-100.0); Oxyhemoglobin 93.3 % THb (90.0-100.0); PCO2 ABG 39.2 mmHg (35.0-45.0); PO2 ABG 89.5 mmHg (80.0-100.0); PO2 FiO2 Ratio Arterial Blood 4.26 %; Site Drawn RIGHT RADIAL; Total Hemoglobin 12.8 g/dL (12.0-18.0); pH ABG 7.363 (7.350-7.450)
[2024-01-20 00:47] LABS: Appearance Urine Clear (Clear); Bilirubin Urine Negative (Negative); Blood Urine Negative (Negative); Color Urine Yellow (Yellow); Glucose Urine UA Negative (Negative); Ketones Urine Negative (Negative); Leukocyte Esterase Ur Negative LEU/UL (Negative); Nitrate Urine Negative (Negative); Protein Urine Negative (Negative); Urobilinogen Urine 0.2 mg/dL (<2.0)
[2024-01-20 00:48] LABS: Troponin I < 0.012 ng/mL (0.000-0.034)
[2024-01-20] MEDS: SODIUM CHLORIDE 0.9% IV 1,000 ML 999 ML IV CONT ×2 (00:53)
[2024-01-20 00:55] LABS: Alanine Aminotransferase 165 U/L (6-35); Alkaline Phosphatase 150 U/L (38-126); Anion Gap 9 mmol/L (4-12); Aspartate Amino Transferase 463 U/L (14-36); Bilirubin,Total 0.6 mg/dL (0.2-1.3); Calcium 7.9 mg/dL (8.4-10.2); Carbon Dioxide 27 mmol/L (22-30); Chloride 109 mmol/L (98-107); Creatine Kinase 76 U/L (30-135); Estimated Glomerular Filt Rate > 60; Glucose 93 mg/dL (65-110); Potassium 3.1 mmol/L (3.4-5.0); Sodium 145 mmol/L (137-145)
[2024-01-20 00:57] LABS: Add Urine Microscopic? NO; Ammonia < 9 umol/L (9-30); Specific Grav Ur 1.004 (1.001-1.035)
[2024-01-20] MEDS: THIAMINE 500 MG/NS 100 ML 500 MG/100 ML BAG 200 MG IVPB (01:41)
[2024-01-20] MEDS: KCL 20 MEQ/SW 100 ML 100 ML 50 MEQ IVPB (01:45)
[2024-01-20 01:59] LABS: Blood Urea Nitrogen < 2 mg/dL (7-17)
[2024-01-20] MEDS: DEXTROSE 5%/LACTATED RINGERS 1,000 ML 1000 ML IV CONT (02:17)
[2024-01-20] MEDS: THIAMINE HCL 200 MG/2 ML VIAL 100 MG IV PUSH (02:18)
[2024-01-20 02:39] LABS: Acetaminophen < 10 ug/mL (10-30)
[2024-01-20 02:44] LABS: Ethanol 591 mg/dL (<10)
[2024-01-20 02:50] LABS: Amphetamine Screen Urine Negative (Negative); Barbiturate Screen Urine Negative (Negative); Benzodiazepines Screen Urine Negative (Negative); Cannabinoid Screen Urine Positive (Negative); Cocaine Screen Urine Negative (Negative); Methadone Screen Urine Negative (Negative); Opiate Screen Urine Negative (Negative); Phencyclidine Screen Urine Negative (Negative)
[2024-01-20 03:21] LABS: Reflex Lactic Acid Yes or No Add Lactic
--- NOTE | 2024-01-20 04:21 | PM.IMHP ---
H&P: HPI History of Present Illness Date/Time: 01/20/24 04:21 Chief Complaint: Syncope Narrative: 43-year-old female with a past medical history of hypothyroidism, anxiety and chronic alcohol abuse with history of alcohol withdrawal seizure December 2023 who presented to the ER from home via EMS after having syncopal episode. Patient is evidently undergoing bowel prep for colonoscopy as scheduled for today when she fell or had syncopal episode. The patient's downstairs neighbor called EMS after they heard a loud noise. The patient's reported EMS that the patient was receiving bowel prep for colonoscopy and he caught her drinking vodka. The patient was found unconscious and responsive to pain only. Initial alcohol level in the ER was 591 and the patient's urine drug screen was positive for THC. Her labs were significant for lactic acidosis 2.5 potassium of 3.1, low BUN and creatinine with elevated AST of 463 ALT of 165 and alk-phos of 150. The patient's CT of the brain and cervical spine were negative for acute process according to stat rad interpretation. Single-view chest x-ray was performed and demonstrated no acute cardiopulmonary process at the time of my review with radiologic interpretation pending. In the ER patient received 40 mEq potassium chloride IV, 500 mg of thiamin 2 L of normal saline and 1 L of D5 LR in bolus. After fluid resuscitation the patient's mentation improved and she was alert oriented x4. She voiced to ER provider that she was ready to try to quit drinking alcohol. She agreed to stay in the hospital for observation status and IV hydration. Patient was recently hospitalized last month for alcohol withdrawal seizure. On the 2nd day of her hospitalization the patient became agitated and I rate and left hospital against medical advice because she did not want to leave foam charger in place or receive lab draws. She stated that she could only states sober for 5 days after that hospital stay. Since that time she has been sneaking alcohol in [place] alcohol around the house. She told nursing staff that she only drinks 3-5 beers a day. At the time of my evaluation the patient did admit to drinking at least a handle (1.75 L) of liquor a day sometimes more depending on the situation. She reports that she is still a functional alcoholic and that her job at the [employer] does not know that she is an alcoholic. She used to be an episodic drinker but after she miscarried baby 5 years ago this triggered her escalation in drinking. This is causing significant stress with her . She states that she thinks they have been for 5 years. The patient is still actively intoxicated and is difficult to get some history from her. The patient is tearful multiple times during the interview. She verbalizes that she knows that she needs to quit drinking. She is distracted by the fact that she is supposed to have a colonoscopy and EGD today at [facility]. She asked if this could be done at our facility. I a informed her that since she was actively intoxicated that she would not be a candidate for sedation. And that our agricultural plow operator would not be performing a procedure on her when they did not have a established patient relationship. Patient reports he is post staff her screening colonoscopy and she was post have an EGD due to intractable heartburn in frequent vomiting. She has a history of bulimia and does tend to vomit frequently. She takes Tums for her symptoms. She is supposed to take omeprazole but is noncompliant. She reports that she has had unintentional weight loss due to her lack of nutritional intake. She has been drinking alcohol more than she has been eating. Review of Systems Review of Systems: 12 systems were reviewed with pertinent positives and negatives per HPI. Except as documented in the HPI, all other systems were reviewed and are negative. She denies any hematemesis, coffee-ground emesis, brett
--- NOTE | 2024-01-20 04:27 | ADMGEN ---
This patient, rCistina Fowler, was admitted to 2 Medical Room 244-. Patient/family oriented to hospital policies and general routines including ID bracelet, bed and alarms, visiting hours, pain management, procedures, bathroom and other care routines, personal items, smoking policy, room service/diet, and visiting hours. Information on how to activate the Rapid Response Team has been discussed. Patient/Family are encouraged to report perceived risks to care and to ask questions if they do not understand what they are told or what they should do.
[2024-01-20] MEDS: LACTATED RINGERS 1,000 ML 125 ML IV CONT ×3 (04:44→20:14)
[2024-01-20 05:19] LABS: Lactic Acid 2.9 mmol/L (0.7-2.0); Magnesium 1.6 mg/dL (1.6-2.3)
[2024-01-20] MEDS: LEVOTHYROXINE SODIUM 50 MCG TABLET PO (06:07)
--- NOTE | 2024-01-20 07:31 | PM.IMPN ---
Progress Note: A&P Assessment and Plan (1) Lactic acidosis: Code(s): E87.20 - Acidosis, unspecified Status: Acute (2) Hypokalemia: Code(s): E87.6 - Hypokalemia Status: Acute (3) GERD (gastroesophageal reflux disease): Qualifiers: Esophagitis presence: esophagitis presence not specified Qualified Code(s): K21.9 - Gastro-esophageal reflux disease without esophagitis Code(s): K21.9 - Gastro-esophageal reflux disease without esophagitis Status: Acute (4) Alcohol intoxication in active alcoholic: Qualifiers: Complication of substance-induced condition: uncomplicated Qualified Code(s): F10.220 - Alcohol dependence with intoxication, uncomplicated Code(s): F10.129 - Alcohol abuse with intoxication, unspecified Status: Acute (5) Acute alcoholic hepatitis: Code(s): K70.10 - Alcoholic hepatitis without ascites Status: Acute (6) Alcohol withdrawal: Code(s): F10.939 - Alcohol use, unspecified with withdrawal, unspecified Status: Acute (7) Alcohol abuse: Code(s): F10.10 - Alcohol abuse, uncomplicated Status: Acute (8) Transaminitis: Code(s): R74.01 - Elevation of levels of liver transaminase levels Status: Acute (9) Metabolic acidosis: Code(s): E87.20 - Acidosis, unspecified Status: Acute Plan ETOH abuse ETOH 591 POA Follow-up ETOH pending Banana bag/IV fluids Previous seizure HX with W/D Thiamine, folic acid, and multi-vitamin PPI daily Tapered Ativan Ativan PRN for seizure activity CIWA daily Monitor and replenish electrolytes as needed gave 2g magnesium (1.6) Seizure precautions if indicated Alcohol-induced hepatic transaminitis IV fluids Monitor Encouraged immediate ETOH cessation and AA HX of Haptic Steatosis Hepatitis panel negative last admission 12/2023 Syncopal episode secondary to ETOH abuse CT Head/spine no acute issues fall precautions IV hydration Hypokalemia 3.1 POA Replenished monitor and replenish as needed HX Hypothyroidism: Resumed levothyroxine/TSH pending HX anxiety: Resumed home medications Code status: Full code per patient DVT prophylaxis: Lovenox Stress ulcer prophylaxis: Protonix 40 BID PT/OT notes: Fall precautions Disposition: Patient admitted to medical unit for alcohol abuse with syncopal episode will do aggressive IV hydration CIWA protocol with scheduled Ativan. Patient also with transaminitis secondary to alcohol abuse will continue to monitor rehydrate. Patient will discharge to home when medically stable. Time Spent With Patient Time with patient: 15 - 25 minutes Subjective Date/time seen: 01/20/24 07:31 Interval history: Admission: 43-year-old female with a past medical history of hypothyroidism, anxiety and chronic alcohol abuse with history of alcohol withdrawal seizure December 2023 who presented to the ER from home via EMS after having syncopal episode.? Patient is evidently undergoing bowel prep for colonoscopy as scheduled for today when she fell or had syncopal episode.? The patient's downstairs neighbor called EMS after they heard a loud noise.? The patient's reported EMS that the patient was receiving bowel prep for colonoscopy and he caught her drinking vodka.? The patient was found unconscious and responsive to pain only.? Initial alcohol level in the ER was 591 and the patient's urine drug screen was positive for THC.? Her labs were significant for lactic acidosis 2.5 potassium of 3.1, low BUN and creatinine with elevated AST of 463 ALT of 165 and alk-phos of 150.? The patient's CT of the brain and cervical spine were negative for acute process according to stat rad interpretation.? Single-view chest x-ray was performed and demonstrated no acute cardiopulmonary process at the time of my review with radiologic interpretation pending.? In the ER patient received 40 mEq potassiu
[2024-01-20 08:23] LABS: Alanine Aminotransferase 144 U/L (6-35); Albumin Level 3.8 g/dL (3.5-5.1); Alkaline Phosphatase 144 U/L (38-126); Anion Gap 13 mmol/L (4-12); Aspartate Amino Transferase 417 U/L (14-36); Bilirubin,Total 0.5 mg/dL (0.2-1.3); Calcium 8.1 mg/dL (8.4-10.2); Carbon Dioxide 25 mmol/L (22-30); Chloride 114 mmol/L (98-107); Estimated CRCL calculation 146 ml/min; Estimated Glomerular Filt Rate > 60; Glucose 81 mg/dL (65-110); Potassium 3.6 mmol/L (3.4-5.0); Sodium 152 mmol/L (137-145)
[2024-01-20] MEDS: MULTIVITAMINS THERAPEUTIC TAB (*BKC) 1 TABLET PO (08:40)
[2024-01-20] MEDS: busPIRone HCL 5 MG TABLET 15 MG PO ×2 (08:40→17:20)
[2024-01-20] MEDS: LORazepam (*CRX) 1 MG TABLET PO ×4 (08:40→20:14)
[2024-01-20] MEDS: FOLIC ACID 1 MG TABLET PO (08:40)
[2024-01-20] MEDS: MAGNESIUM SULF 2 GM/WATER 50ML 2 GM/50 ML BAG IVPB (08:41)
[2024-01-20] MEDS: PANTOPRAZOLE 40 MG TABLET PO ×2 (08:41→20:14)
[2024-01-20] MEDS: ESCITALOPRAM OXALATE 10 MG TABLET PO (08:41)
[2024-01-20] MEDS: POTASSIUM CHLORIDE 20 MEQ PACKET (FOR LIQUID) 40 MEQ PO (08:41)
[2024-01-20] MEDS: THIAMINE HCL 100 MG TABLET PO (08:41)
[2024-01-20 08:45] LABS: Magnesium 1.7 mg/dL (1.6-2.3)
[2024-01-20 08:55] LABS: Blood Urea Nitrogen < 2 mg/dL (7-17)
[2024-01-20] MEDS: ENOXAPARIN 40 MG/0.4 ML SYRINGE SUB-Q (08:57)
[2024-01-20 09:29] LABS: Folic Acid 4.4 ng/mL (2.76->20)
[2024-01-20 09:54] LABS: Ethanol 385 mg/dL (<10)
[2024-01-20] MEDS: ALPRAZolam (*CRX) 0.5 MG TABLET PO (20:13)
[2024-01-21] VITALS: BP 106/65; PULSE 73
[2024-01-21] MEDS: LORazepam (*CRX) 1 MG TABLET PO ×2 (00:36→05:40)
[2024-01-21 02:24] VITALS: BP 106/65
[2024-01-21 04:00] VITALS: PULSE 71
[2024-01-21 05:26] VITALS: BP 116/74; PULSE 76; RESP 17; TEMP 37.1; O2SAT 99
[2024-01-21 05:37] LABS: Hemoglobin 11.3 g/dL (12.0-15.0); Mean Corpuscular HGB Conc 33.2 g/dl (32-36); Mean Corpuscular Hemoglobin 34.2 pg (26-34); Mean Platelet Volume 10.2 fl (7.4-10.4); Platelet Count Result 236 k/mm3 (150-375); Red Cell Distribution Width 12.5 % (11.5-14.5); White Blood Count 7.7 K/mm3 (4.5-10.0)
[2024-01-21] MEDS: LACTATED RINGERS 1,000 ML 125 ML IV CONT ×2 (05:39→08:54)
[2024-01-21] MEDS: LEVOTHYROXINE SODIUM 50 MCG TABLET PO (05:40)
[2024-01-21 06:25] LABS: Alanine Aminotransferase 126 U/L (6-35); Albumin Level 3.3 g/dL (3.5-5.1); Alkaline Phosphatase 177 U/L (38-126); Anion Gap 4 mmol/L (4-12); Aspartate Amino Transferase 301 U/L (14-36); Blood Urea Nitrogen 2 mg/dL (7-17); Calcium 8.3 mg/dL (8.4-10.2); Carbon Dioxide 26 mmol/L (22-30); Chloride 104 mmol/L (98-107); Estimated CRCL calculation 120 ml/min; Estimated Glomerular Filt Rate > 60; Glucose 82 mg/dL (65-110); Magnesium 1.5 mg/dL (1.6-2.3); Potassium 3.6 mmol/L (3.4-5.0); Sodium 134 mmol/L (137-145)
[2024-01-21] MEDS: PANTOPRAZOLE 40 MG TABLET PO (08:53)
[2024-01-21] MEDS: THIAMINE HCL 100 MG TABLET PO (08:53)
[2024-01-21] MEDS: ESCITALOPRAM OXALATE 10 MG TABLET PO (08:53)
[2024-01-21] MEDS: ENOXAPARIN 40 MG/0.4 ML SYRINGE SUB-Q (08:54)
[2024-01-21] MEDS: MULTIVITAMINS THERAPEUTIC TAB (*BKC) 1 TABLET PO (08:54)
[2024-01-21] MEDS: busPIRone HCL 5 MG TABLET 15 MG PO (08:54)
[2024-01-21] MEDS: FOLIC ACID 1 MG TABLET PO (08:54)
[2024-01-21] MEDS: POTASSIUM CHLORIDE 20 MEQ PACKET (FOR LIQUID) 40 MEQ PO (11:03)
[2024-01-21] MEDS: MAGNESIUM SULF 2 GM/WATER 50ML 2 GM/50 ML BAG IVPB (11:03)
--- NOTE | 2024-01-21 12:02 | PM.DS ---
DS: Admitting Diagnosis Discharge Date 01/21/2024 Admitting Diagnosis ETOH abuse/Fall/Periorbital hematoma metabolic acidosis/lactic acidosis DS: Discharge Diagnosis Discharge Diagnosis (1) Lactic acidosis: Code(s): E87.20 - Acidosis, unspecified Status: Acute (2) Hypokalemia: Code(s): E87.6 - Hypokalemia Status: Acute (3) GERD (gastroesophageal reflux disease): Qualifiers: Esophagitis presence: esophagitis presence not specified Qualified Code(s): K21.9 - Gastro-esophageal reflux disease without esophagitis Code(s): K21.9 - Gastro-esophageal reflux disease without esophagitis Status: Acute (4) Alcohol intoxication in active alcoholic: Qualifiers: Complication of substance-induced condition: uncomplicated Qualified Code(s): F10.220 - Alcohol dependence with intoxication, uncomplicated Code(s): F10.129 - Alcohol abuse with intoxication, unspecified Status: Acute (5) Acute alcoholic hepatitis: Code(s): K70.10 - Alcoholic hepatitis without ascites Status: Acute (6) Alcohol withdrawal: Code(s): F10.939 - Alcohol use, unspecified with withdrawal, unspecified Status: Acute (7) Alcohol abuse: Code(s): F10.10 - Alcohol abuse, uncomplicated Status: Acute (8) Transaminitis: Code(s): R74.01 - Elevation of levels of liver transaminase levels Status: Acute (9) Metabolic acidosis: Code(s): E87.20 - Acidosis, unspecified Status: Acute Plan ETOH abuse ETOH 591 POA Follow-up ETOH pending Banana bag/IV fluids Previous seizure HX with W/D Thiamine, folic acid, and multi-vitamin PPI daily Tapered Ativan Ativan PRN for seizure activity CIWA daily Monitor and replenish electrolytes as needed gave 2g magnesium (1.6) Seizure precautions if indicated Alcohol-induced hepatic transaminitis IV fluids Monitor Encouraged immediate ETOH cessation and AA HX of Haptic Steatosis Hepatitis panel negative last admission 12/2023 Syncopal episode secondary to ETOH abuse CT Head/spine no acute issues fall precautions IV hydration Hypokalemia 3.1 POA Replenished monitor and replenish as needed HX Hypothyroidism: Resumed levothyroxine/TSH pending HX anxiety: Resumed home medications Disposition: Patient discharged to home has follow-up with primary care physician later on today at 1:00 p.m. encouraged immediate ETOH cessation DS: Summary Hospital Course Reason for hospitalization: ETOH abuse/Fall/Periorbital hematoma metabolic acidosis/lactic acidosis Hospital Course: Admission: 43-year-old female with a past medical history of hypothyroidism, anxiety and chronic alcohol abuse with history of alcohol withdrawal seizure December 2023 who presented to the ER from home via EMS after having syncopal episode.? Patient is evidently undergoing bowel prep for colonoscopy as scheduled for today when she fell or had syncopal episode.? The patient's downstairs neighbor called EMS after they heard a loud noise.? The patient's reported EMS that the patient was receiving bowel prep for colonoscopy and he caught her drinking vodka.? The patient was found unconscious and responsive to pain only.? Initial alcohol level in the ER was 591 and the patient's urine drug screen was positive for THC.? Her labs were significant for lactic acidosis 2.5 potassium of 3.1, low BUN and creatinine with elevated AST of 463 ALT of 165 and alk-phos of 150.? The patient's CT of the brain and cervical spine were negative for acute process according to stat rad interpretation.? Single-view chest x-ray was performed and demonstrated no acute cardiopulmonary process at the time of my review with radiologic interpretation pending.? In the ER patient received 40 mEq potassium chloride IV, 500 mg of thiamin 2 L of normal saline and 1 L of D5 LR in bolus.? After fluid resuscitation the patient's ment
== END 2024-01-21 12:30 | disposition home or self-care (01) ==
LOC: ANHED 01-20 03:41 → ANH2MED 01-20 04:03
PROVIDERS: Nurse Practitioner Family; Admitting Provider Internal Medicine; Emergency Provider Physician Assistant; PCP Internal Medicine; Visit Provider Internal Medicine
DX: K70.10 Alcoholic hepatitis without ascites (principal); R55 Syncope and collapse; F10.220 Alcohol dependence with intoxication, uncomplicated; E87.6 Hypokalemia; E87.20 Acidosis, unspecified; S05.11XA Contusion of eyeball and orbital tissues, right eye, initial encounter; W19.XXXA Unspecified fall, initial encounter; R74.01 Elevation of levels of liver transaminase levels; E03.9 Hypothyroidism, unspecified; F32.A Depression, unspecified; F41.9 Anxiety disorder, unspecified; K21.9 Gastro-esophageal reflux disease without esophagitis; Y90.8 Blood alcohol level of 240 mg/100 ml or more; Z87.891 Personal history of nicotine dependence
CPT/HCPCS: 36415; 36600; 70450; 71045; 72125; 80048; 80053; 80076; 80307; 81003; 82140; 82550; 82607; 82746; 82805; 83605; 83735; 84443; 84484; 85025; 85027; 85610; 85730; 93005; 96361; 96365; 96366; 96367; 96372; 96375; 96376; 99285; A9270; G0378; J1650; J3411; J3475; J3480; J7030; J7120; J7121